=== PATIENT | male | born 1985 | race Caucasian/White ===

== ENCOUNTER 2020-09-01 07:50 | Outpatient (REF) | payer OTHER, SELFPAY ==
--- NOTE | 2020-09-01 07:55 | EEG_ITS ---
This is a 16-channel EEG with an EKG lead. The patient is reported awake and drowsy during the tracing. Background EEG rhythm during wakefulness is about 10 hertz, 5 to 30 microvolt posteriorly, lower amplitude fast anteriorly. Photic stimulation does not produce any significant driving. Hyperventilation is not performed. The patient frequently transition into drowsiness. No asymmetry, sharp wave spikes, or paroxysmal tendencies noted. Cardiac lead does not reveal any significant abnormality. IMPRESSION: Unremarkable EEG. MD BOY Roca/BRITT / [id number]
--- NOTE | 2020-09-01 10:55 | CT_ITS ---
EXAMINATION: CT HEAD WITHOUT CONTRAST CLINICAL INFORMATION: Syncope and collapse. COMPARISON: None TECHNIQUE: Contiguous axial imaging was performed from the skull base to vertex without intravenous administration of contrast. This CT examination was performed using dose optimization techniques as appropriate, variously including the following: *Automated exposure control *Adjustment of mA and/or kV according to patient size (this includes techniques or standardized protocols for targeted exams where dose is matched to indication/reason for exam; i.e. extremities or head) *Use of iterative reconstruction technique DLP: 687 mGy-cm FINDINGS: There is no evidence of acute intracranial hemorrhage or territorial infarction. No abnormal mass effect or midline shift is seen. Galeas to white matter differentiation is well preserved. No extra-axial fluid collections are identified. The ventricles are normal in size. There is no abnormal attenuation within the brain parenchyma. The osseous structures and soft tissues are normal. The mastoid air cells and visualized portions of the paranasal sinuses are well aerated. CT/CT head/brain wo con IMPRESSION: No acute intracranial process seen.
== END 2020-09-01 07:51 | disposition home or self-care (01) ==
LOC: HO.NEURO 07:50
PROVIDERS: PCP Internal Medicine; Visit Provider Internal Medicine
DX: R55 Syncope and collapse (principal)
CPT/HCPCS: 70450; 95816

== ENCOUNTER → 2020-10-16 09:25 | Outpatient (REF) | payer OTHER, SELFPAY ==
--- NOTE | 2020-10-16 09:32 | ECG_ITS ---
Hook-up date: 2020-10-16 10:28:00 Duration: 47:59:00 Test Indications: SYNCOPE AND COLLAPSE Medications: 315873 QRS complexes 2621 Ventricular ectopics which represent 1 % of total QRS comp. 30 Supraventricular ectopics which represent <1 % of total QRS comp. * Paced QRS complexs which represent % of total QRS comp. VENTRICULAR ECTOPY 2621 Isolated 0 Bigeminal Cycles 0 Couplets 0 Runs 0 Beats in Runs * Beats LONGEST at * BPM at :: -- * Beats FASTEST at * BPM at :: -- SUPRAVENTRICULAR ECTOPY 28 Isolated 1 Couplets 0 Runs 0 Beats in Runs * Beats LONGEST at * BPM at :: -- * Beats FASTEST at * BPM at :: -- HEART RATES 56 MIN at 05:37:02 2020-10-17 88 AVG 152 MAX at 17:40:17 2020-10-17 LONGEST RR 1.2080 secs at 09:08:24 2020-10-17 S-T LEVELS Channel 1 - 128 mm at 10:28:00 2020-10-16 - 128 mm at 10:28:00 2020-10-16 Channel 2 - 128 mm at 10:28:00 2020-10-16 - 128 mm at 10:28:00 2020-10-16 Channel 3 - 128 mm at 02:94:71 -- - 128 mm at 02:94:71 Underlying rhythm is sinus; Average ventricular rate 88/min; About 30% of the time, ventricular rate >100/min; Isolated ventricular ectopy - (1% of total beats, about 2621 over 48Hrs); No sustained arrhythmias; Patient did not report any symptoms in the diary Referred By: Shahida Mccormack Overread By: LIDYA TAVERA
--- NOTE | 2020-10-16 09:32 | CA_ITS ---
Acquisition Time: 2020-10-16 09:35:25 Total Exercise Time: 00:08:19 Test Indications: Dyspnea Medications: TRAMADOL FIORICET Protocol: ALEXANDRA Max HR: 169 BPM 90% of Pred: 187 BPM Max BP: 116/064 mmHG Max Work Load: 10.1 METS Exercise stress test using Alexandra protocol. Total of 8 min 19 sec, tMETS 10.10 and TAPHR up to 90%. Tolerated well, denies any anginal sx. EKG with isolated PVC's no ischemic changes seen in peak exercise or in recovery. Normotensive response to exercise. Test reviewed with Dr. Mendez Referred By: Shahida Mccormack Overread By: Rufus Gonzalez
== END ==
LOC: HO.CARD 09:25
PROVIDERS: Visit Provider Internal Medicine
DX: R07.9 Chest pain, unspecified (principal); R55 Syncope and collapse
CPT/HCPCS: 93017; 93226

== ENCOUNTER 2020-12-01 13:51 | Outpatient (REF) | payer OTHER, SELFPAY ==
--- NOTE | ~2020-12-01 | MR_ITS ---
MRI OF THE BRAIN WITHOUT IV CONTRAST INDICATION: Migraine headache. COMPARISON: Head CT 09/01/2020. TECHNIQUE: Multiplanar multisequence MR imaging of the brain was obtained without IV contrast. FINDINGS: There is no hydrocephalus, extra-axial surface collection, or herniation. No parenchymal signal abnormality. The major flow voids at the skull base are preserved. There is no acute infarct on diffusion-weighted imaging. There is no intracranial hemorrhage on the gradient recalled echo acquisition. The midline structures are normal. The cerebellar tonsils are normally positioned. The cerebellum and brainstem are normal. The craniocervical junction is normal. Osseous marrow signal intensity is homogenous. The visualized soft tissues are unremarkable. MR/MR head/brain wo con IMPRESSION: Unremarkable noncontrast MRI of the brain.
== END 2020-12-01 13:52 | disposition home or self-care (01) ==
LOC: HO.MRI 13:51
PROVIDERS: Visit Provider Internal Medicine
DX: G40.909 Epilepsy, unspecified, not intractable, without status epilepticus (principal)
CPT/HCPCS: 70551

== ENCOUNTER 2022-06-29 15:54 | Outpatient (REF) | payer OTHER, SELFPAY ==
[2022-06-29 17:02] LABS: Alanine Aminotransferase 19 U/L (0-40); Anion Gap 14 (12-20); Aspartate Amino Transferase 26 U/L (5-37); Bilirubin Total 0.3 mg/dL (0.0-1.0); Blood Urea Nitrogen 18 mg/dL (9-16); Calcium 9.3 mg/dL (8.4-10.2); Carbon Dioxide 25 mmol/L (22-29); Chloride 107 mmol/L (96-108); Estimated Glomerular Filt Rate > 60; Glucose Fasting 91 mg/dL (60-99); Potassium 4.8 mmol/L (3.3-5.1); Sodium 141 mmol/L (135-145)
[2022-06-29 17:03] LABS: Albumin Level 4.5 g/dL (3.5-5.0); Alkaline Phosphatase 129 U/L (39-117); Cholesterol 206 mg/dL; HDL Cholesterol 44 mg/dL; LDL Cholesterol Calculated 132 mg/dl; Total Protein 7.7 g/dL (6.5-8.0); Triglycerides 150 mg/dL
== END 2022-06-29 15:55 | disposition home or self-care (01) ==
LOC: HO.LAB 15:54
PROVIDERS: PCP Internal Medicine; Visit Provider Internal Medicine
DX: R07.9 Chest pain, unspecified (principal)
CPT/HCPCS: 36415; 80053; 80061; 84443

== ENCOUNTER → 2022-06-30 14:35 | Outpatient (REF) | payer OTHER, SELFPAY ==
--- NOTE | 2022-06-30 14:38 | ECG_ITS ---
Test Reason : CP Blood Pressure : / mmHG Vent. Rate : 080 BPM Atrial Rate : 080 BPM P-R Int : 134 ms QRS Dur : 074 ms QT Int : 342 ms P-R-T Axes : 061 084 063 degrees QTc Int : 394 ms Normal sinus rhythm RSR' or QR pattern in V1 suggests right ventricular conduction delay Otherwise normal ECG No previous ECGs available Referred By: Shahida Mccormack Electronically Signed By:OSCAR BECERRIL MD
== END ==
LOC: HO.CARD 14:35
PROVIDERS: PCP Internal Medicine; Visit Provider Internal Medicine
DX: R07.9 Chest pain, unspecified (principal)
CPT/HCPCS: 93005

== ENCOUNTER 2022-10-12 14:14 | Outpatient (REF) | payer OTHER, SELFPAY ==
[2022-10-12 15:37] LABS: Syphilis Screen Nonreactive (Nonreactive)
[2022-10-12 16:16] LABS: CT PCR NOT DETECTED (Not Detect.); NG PCR NOT DETECTED (Not Detect.)
[2022-10-13 11:40] LABS: HIV AB/AG Nonreactive (Nonreactive); HIV Num 1 0.09 S/CO (0.00-0.99)
== END 2022-10-12 14:15 | disposition home or self-care (01) ==
LOC: HO.LAB 14:14
PROVIDERS: PCP Internal Medicine; Visit Provider Internal Medicine
DX: Z11.3 Encounter for screening for infections with a predominantly sexual mode of transmission (principal)
CPT/HCPCS: 0353U; 86780; 87389

== ENCOUNTER → 2022-10-18 12:25 | Outpatient (BNVA) | payer OTHER, SELFPAY | PROVIDERS: PCP Internal Medicine; Referring Provider Internal Medicine; Visit Provider Internal Medicine | DX: R07.9 Chest pain, unspecified (principal); R00.2 Palpitations | CPT/HCPCS: 99202 ==

== ENCOUNTER → 2022-10-31 14:48 | Outpatient (REF) | payer OTHER, SELFPAY ==
--- NOTE | 2022-10-31 14:52 | CA_ITS ---
Transthoracic Echocardiogram Patient (Last, First, Middle): Syed Black, Gender: Male Date of : 1985 Age: 36 Procedure Date: 10/31/2022 Procedure Type: Transthoracic Echocardiogram Location: OP Height: 167.64 cm Weight: 69.85 kg BSA: 1.79 m2 Heart Rate: bpm BP: 122 / 78 mmHg Chassis Wirer: Referring MD: Feliberto José MD Creative Services Director: Jesse Mendez MD Symptoms: R07.9 - Chest pain, unspecified Study Quality: Adequate ECG Rhythm: Sinus Conclusions: - Essentially normal study Findings Left Ventricle Normal left ventricular size, thickness, and systolic function. The visually estimated ejection fraction is between 60-65%. Diastolic function is normal for age. Peak GLS is -18.8%, within normal limits. Right Ventricle Normal right ventricular cavity size and systolic function. Atria Both atria are normal in size. There is lipomatous hypertrophy of the interatrial septum. There is no evidence of interatrial shunt. Aortic Valve Normal aortic valve structure and function. There is no aortic valve stenosis. There is no aortic valve regurgitation. Mitral Valve Normal mitral valve structure and function. There is trace mitral valve regurgitation. There is no mitral valve stenosis. Pulmonic Valve The pulmonic valve is likely normal. Tricuspid Valve Normal tricuspid valve structure. There is trace tricuspid valve regurgitation. The right ventricular systolic pressure is normal. The right ventricular systolic pressure is 17 mmHg. Normal right atrial pressure. There is no evidence of pulmonary hypertension. Great Vessels All visible segments of the aorta are normal in size. The pulmonary artery was not well visualized. Venous The inferior vena cava is normal in size and collapses greater than 50% with inspiration. Pericardium/Pleural There is no evidence of pericardial effusion. Prior Study Comparison No prior study available for comparison. Measurements 2D Linear Measurements IVSd: 0.80 0.6-0.9/0.6-1.0 cm LVIDd: 4.70 3.9-5.3/4.2-5.9 cm LVIDd Index: 2.63 2.4-3.2/2.2-3.1 cm/m2 LVIDs: 3.19 2.0-3.6 cm LVPWd: 0.87 0.7-1.1 cm Ao Root: 2.60 2.1-3.5 cm LA Diam: 2.70 2.7-3.8/3.0-4.0 cm LAIDs Index: 1.51 1.5-2.3 cm/m2 LV Mass: 160.96 67-162/88-224 g LV Mass Index: 89.92 43-95/49-115 g/m2 LVOT Diam: 2.00 3.0+(-)1.3 cm Mitral Valve MV Pk E: 0.66 MV PK A: 0.70 MV Decel Time: 196.00 E/A: 0.90 E'Lateral: 16.80 E'Medial: 11.50 E/E' Med: 5.70 E/E' Lat: 3.90 PHT: 57.00 MVA PHT: 3.86 Decel [place]: 3.38 Aortic Valve AoV Pk Fran: 1.38 AoV Mn Fran: 0.84 AoV VTI: 0.27 AoV Pk Grad: 8.00 Aov Mn Grad: 4.00 PAT Cont.VTI: 2.24 LVOT LVOT Pk Fran: 0.98 LVOT Mn Fran: 0.62 LVOT VTI: 0.19 LVOT Pk Grad: 4.00 LVOT Mn Grad: 2.00 LVOT Diam: 2.00 LVOT Area: 3.14 Diastolic Function MV Pk E: 0.66 MV Pk A: 0.70 E/A: 0.90 E'Medial: 11.50 E/E' Med: 5.70 E' Laterial: 16.80 E/E' Lat: 3.90 Right Ventricle TAPSE (mm): 21.20 TVS' Fran: 11.60 Tricuspid Valve TR Pk Fran: 1.84 TR Pk Grad: 14.00 RA Press: 3.00 RVSP: 17.00 Great Vessels Aorta Ao Root-2D: 2.60 2.0-3.7 cm Ao Asc: 2.60 2.1-3.4 cm Ao Arch: 2.70 Pulmonary Valve PV Pk Fran: 0.87 Peak PV Grad: 3.00 Updated in Other Vendor System with Status of Final Jesse Mendez MD electronically signed on 11/01/2022 12:43:07 PM with status of Final
== END ==
LOC: HO.CARD 14:48
PROVIDERS: PCP Internal Medicine; Visit Provider Internal Medicine
DX: R07.9 Chest pain, unspecified (principal)
CPT/HCPCS: 93306

== ENCOUNTER 2023-01-26 17:46 | Outpatient (REF) | payer OTHER, SELFPAY ==
[2023-01-26 18:15] LABS: Amphetamine Screen Urine Not Detected (Not Detect); Barbiturates, Urine POSITIVE (Not Detect); Benzodiazepines Screen Urine Not Detected (Not Detect); Cannabinoid Screen Urine Not Detected (Not Detect); Cocaine Screen Urine Not Detected (Not Detect); Fentanyl, urine Not Detected (Not Detect); Opiate Screen Urine Not Detected (Not Detect); Phencyclidine Screen Urine Not Detected (Not Detect)
[2023-01-29 11:46] LABS: Desmethyltramadol, Ur NEGATIVE
[2023-01-29 11:48] LABS: Tramadol, Ur NEGATIVE
[2023-02-07 08:44] LABS: Codeine, Ur NEGATIVE; Hydrocodone, Ur NEGATIVE; Hydromorphone, Ur NEGATIVE; Morphine, Ur NEGATIVE; Norhydrocodone, Ur NEGATIVE; Noroxycodone, Ur NEGATIVE; Oxycodone, Ur NEGATIVE; Oxymorphone, Ur NEGATIVE
== END 2023-01-26 17:47 | disposition home or self-care (01) ==
LOC: HO.LNP 17:46
PROVIDERS: Visit Provider Internal Medicine
DX: Z00.00 Encounter for general adult medical examination without abnormal findings (principal); R07.9 Chest pain, unspecified; R55 Syncope and collapse; M51.36 Other intervertebral disc degeneration, lumbar region; Z51.81 Encounter for therapeutic drug level monitoring
CPT/HCPCS: 80307; 80364; 80365; 80373

== ENCOUNTER 2023-11-22 14:42 | Outpatient (AMB) | payer OTHER, SELFPAY ==
--- NOTE | 2023-11-22 14:44 | A.OFFPC_ITS ---
Vital Signs 11/22/23 14:45 Height 5 ft 6 in Weight 144 lb BMI 23.2 BP 102/70 Blood Pressure Location Lt brachial Position Sitting Intake Visit Reasons: chronic migraine Intake Note: Patient here for follow up chronic migraine Morning Babysitter Required: No Accompanied by: Significant Other, child Allergies rizatriptan Allergy (Unknown, Verified 11/22/23 15:17) Palpitations Medication List - Last Reconciled 11/22/23 by Shahida Mccormack MD [id number] 50-325-40 mg 1 tab PO DAILY PRN 30 days Tobacco use date assessed: 11/22/23 Dental Screening Dental Screen Date: 11/22/23 Did you have a dental visit in the last 12 months?: No Did you have a dental problem in the last 6 months where you did not have access to dental care?: No Was dental information given to patient?: Patient has dentist HPI HPI Comments History of Present Illness Details This is a 37-year-old male with migraines, lumbar degenerative disc disease and insomnia that comes today accompanied by significant other and child for follow-up on his conditions. He said that he has a migraine every day. Last MRI of the brain was 2020 was negative. I will start him on amitriptyline for migraine prophylaxis and refer him to Neurology. Will give meloxicam as needed for his back pain due to lumbar degenerative disc disease. Hopefully amitriptyline will also help with his insomnia. He has a smoker and is trying to decrease the number of cigarettes daily. [facility] Medical History (Updated 01/26/23 @ 13:30 by Shahida Mccormack MD) Syncope Chest pain Lumbar degenerative disc disease Migraines Surgical History History of cholecystectomy Family History Father Medical history unknown Mother AIDS Social History Housing: Apartment Alcohol intake: current Alcohol intake frequency: holidays/special occasions only Alcohol type: beer Patient Tobacco Use Status: Current everyday Tobacco user Tobacco use type: Cigarette Cigarettes Per Day: 5 e-Cigarette/Vaping Use: Never Used Second Hand Smoke Exposure: No service: No Current occupational status: unemployed Cognitive needs: No Hearing needs: No Vision needs: No Questionnaire PHQ-9 Over the last 2 weeks, how often have you been bothered by any of the following problems? 1. Little interest or pleasure in doing things: not at all 2. Feeling down, depressed, or hopeless: not at all 3. Trouble falling or staying asleep, or sleeping too much: not at all 4. Feeling tired or having little energy: not at all 5. Poor appetite or overeating: not at all 6. Feeling bad about yourself - or that you are a failure or have let yourself or your family down: not at all 7. Trouble concentrating on things, such as reading the newspaper or watching television: not at all 8. Moving or speaking so slowly that other people could have noticed. Or the opposite - being so fidgety or restless that you have been moving around a lot more than usual: not at all 9. Thoughts that you would be better off or of hurting yourself in some way: not at all Total score: 0 Depression Screening Interpretation: Negative Depression Screening Done: Yes 16421 - PHQ-9 Billing: Yes Source: Developed by Drs. Philip Pineda, Bianca Jacome, Chung Pollard and colleagues, with an educational jose from [employer]. Thrive Questionnaire Date Thrive assessed: 11/22/23 I am a: Patient What is your living situation today?: I have a steady place to live Within the past 12 months, did the food you bought not last and you didn't have the money to get more?: Never true Within the past 12 months, did you worry whether your food would run out before you got money to buy more?: Never true Do you have trouble paying for medicines?: No Do you have trouble getting transportation to medical appointments?: No Do you have trouble paying your heating and electricity bill?: No Do you have trouble taking care of your child, family member or friend?: No Do you have trouble with day-to-day activities such as bathing, preparing meals, shopping, managing finances, etc.?: No Are you currently unemployed and looking for a job?: No Are you interested in more education?: No Please select the resources that you would like help with: None Currently or been in a relationship where the following occur: no concerns r eported THRIVE Score: 0 AUDIT C Alcohol Use Questionnaire (AUDIT-C) 1. How often do you have a drink containing alcohol?: Monthly or less 2. How many drinks containing alcohol do you have on a typical day when you are drinking?: 1 or 2 3. How often do you have six or more drinks on one occasion?: Never Total Score: 1 Score Reviewed/Action Taken: No KARTHIK-7 AMB Questionnaire KARTHIK-7 Date KARTHIK - 7 assessed: 11/22/23 Feeling nervous, anxious, or on edge: 2 = More than half the days Not being able to stop or control worryin = Not at all Worrying too much about different things: 1 = Several days Trouble relaxin = More than half the days Being so restless that it is hard to sit still: 1 = Several days Becoming easily annoyed or irritable: 1 = Several days Feeling afraid as if something awful might happen: 1 = Several days Total KARTHIK-7 score (0-4 normal; 5-9 mild; 10-14 moderate; 15-21 severe): 8 Source: Developed by Drs. Philip Pineda, Bianca Jacome, Chung Pollard and colleagues, with an educational jose from [employer]. KARTHIK-7 Assessment Billing KARTHIK-7 Assessment Tool: KARTHIK-7 Assessment 02482 Review of Systems Const All systems reviewed & are unremarkable except as noted in HPI and below Eyes Reports no additional complaints, Denies change in vision and Denies other visual disturbances Card Denies chest pain at rest, Denies chest pain with activity, Denies edema, Denies irregular heart rhythm, Denies claudication, Denies dyspnea, Denies dyspnea on exertion, Denies orthopnea, Denies paroxysmal nocturnal dyspnea and Denies slow heart rate Resp Denies cough, Denies dyspnea and Denies dyspnea on exertion GI Denies abdominal pain, Denies change in bowel habits, Denies excessive flatus, Denies nausea and Denies vomiting Denies urinary hesitancy, Denies urinary incontinence and Denies urinary urgency Musc Denies abnormal gait, Denies atrophy, Denies deformity and Denies limited range of motion Skin/Breast Denies bleeding lesions, Denies changing lesions and Denies rash Neuro Denies abnormal gait and Denies lack of coordination Physical exam (Primary Care) Vital Signs: Last Vital Signs BP 102/70 11/22/23 14:45 BMI result Body Mass Index 23.2 Tobacco/Smoking Status: Tobacco use Status Tobacco use date assessed 11/22/23 11/22/23 14:51 Patient Tobacco Use Status Current everyday Tobacco 11/22/23 14:51 Tobacco use type Cigarette 11/22/23 14:51 e-Cigarette/Vaping Use Never Used 11/22/23 14:51 PHQ-9: PHQ-9 Score PHQ-9: Total score 0 11/22/23 15:21 Depression Screening Interpretation: Negative Thrive Assessment: Date of Thrive Assessment Date Thrive assessed 11/22/23 11/22/23 14:51 Currently or been in a relationship where the following occur: no concerns reported Const Orientation/consciousness: patient oriented x3 Eyes General: appearance normal, both eyes and all related structures Eyelids: Yes eyelids normal Conjunctivae: conjunctivae normal Neck Neck: Yes normal visual inspection and Yes supple Resp Effort & Inspection: normal respiratory effort Auscultation: clear to auscultation bilaterally Cardio Jugular venous distension: no JVD Rate: regular rate Rhythm: regular rhythm Heart sounds: S1 normal heart sound present and S2 normal heart sound present Neuro General: patient oriented x3 and no focal motor deficits Extrem General: Yes full ROM Assessment and Plan Assessment & Plan (1) Migraines: Code(s): G43.909 - Migraine, unspecified, not intractable, without status migrainosus Qualifiers: Migraine type: unspecified Status migrainosus presence: without status migrainosus Intractability: not intractable Qualified Code(s): G43.909 - Migraine, unspecified, not intractable, without status migrainosus Plan: Start amitriptyline for migraine prophylaxis. Continue butalbital as needed. Referred to neurology. (2) Lumbar degenerative disc disease: Code(s): M51.36 - Other intervertebral disc degeneration, lumbar region Plan: Start meloxicam as needed. (3) Insomnia: Code(s): G47.00 - Insomnia, unspecified Plan: Start amitriptyline at bedtime. Orders: Orders Comprehensive [place]. Panel Fast Today R00.2 - Palpitations Lipid Panel Today E78.5 - Hyperlipidemia, unspecified Referrals Neurology Referral G43.909 - Migraine, unspecified, not intractable, without status migrainosus Medications: New meloxicam 15 mg PO DAILY PRN 30 tabs 0RF pain 30 days M51.36 - Other intervertebral disc degeneration, lumbar region amitriptyline 25 mg PO BEDTIME 30 tabs 2RF 30 days G43.909 - Migraine, unspecified, not intractable, without status migrainosus Coding Level of Care Code Est Pt Level 3 (89166) Diagnoses Migraine without status migrainosus, not intractable, unspecified migraine type G43.909 Migraine type: unspecified Status migrainosus presence: without status migrainosus Intractability: not intractable Lumbar degenerative disc disease M51.36 Insomnia G47.00 Additional Codes KARTHIK-7 Assessment Billing - KARTHIK-7 Assessment Tool: KARTHIK-7 Assessment 42401 ([id number]) Time Spent (min) 19
[2023-11-22 14:45] VITALS: BP 102/70; BMI 23.2
== END 2023-11-22 15:25 | disposition home or self-care (01) ==
PROVIDERS: PCP Internal Medicine; Visit Provider Internal Medicine
DX: G43.909 Migraine, unspecified, not intractable, without status migrainosus (principal); M51.36 Other intervertebral disc degeneration, lumbar region; G47.00 Insomnia, unspecified
CPT/HCPCS: 99213

== ENCOUNTER 2024-02-12 12:33 | Outpatient (AMB) | payer OTHER, SELFPAY ==
[2024-02-12 12:38] VITALS: BP 108/60; BMI 22.3
--- NOTE | 2024-02-12 12:38 | MHC.PC.OV ---
Vital Signs 02/12/24 12:38 Height 5 ft 6 in Weight 138 lb BMI 22.3 BP 108/60 Blood Pressure Location Lt brachial Position Sitting Intake Visit Reasons: physical exam Intake Note: Patient here for a physical exam Aircraft Dispatcher Required: No Accompanied by: Self / Same As Patient Allergies rizatriptan Allergy (Unknown, Verified 02/12/24 12:56) Palpitations Medication List - Last Reconciled 02/12/24 by Shahida Mccormack MD [id number] 50-325-40 mg 1 tab PO DAILY PRN 30 days meloxicam 15 mg PO DAILY PRN 30 days Tobacco use date assessed: 11/22/23 Dental Screening Dental Screen Date: 11/22/23 HPI HPI Comments History of Present Illness Details This is a 38-year-old male that comes for his physical exam. No chest pain or shortness on breath. Doing well. [facility] Medical History Syncope Chest pain Lumbar degenerative disc disease Migraines Surgical History History of cholecystectomy Family History Father Medical history unknown Mother AIDS Social History Housing: Apartment Alcohol intake: current Alcohol intake frequency: holidays/special occasions only Alcohol type: beer Patient Tobacco Use Status: Current everyday Tobacco user Tobacco use type: Cigarette Cigarettes Per Day: 5 e-Cigarette/Vaping Use: Never Used Second Hand Smoke Exposure: No service: No Current occupational status: unemployed Cognitive needs: No Hearing needs: No Vision needs: No Questionnaire Thrive Questionnaire Date Thrive assessed: 11/22/23 KARTHIK-7 AMB Questionnaire KARTHIK-7 Date KARTHIK - 7 assessed: 11/22/23 Source: Developed by Drs. Philip Pineda, Bianca Jacome, Chung Pollard and colleagues, with an educational jose from [employer]. Review of Systems Const All systems reviewed & are unremarkable except as noted in HPI and below Reports headache(s) ENT Reports headache(s) Card Denies chest pain at rest, Denies chest pain with activity, Denies edema, Denies irregular heart rhythm, Denies claudication, Denies dyspnea, Denies dyspnea on exertion, Denies orthopnea, Denies paroxysmal nocturnal dyspnea and Denies slow heart rate Resp Denies cough, Denies dyspnea and Denies dyspnea on exertion GI Denies abdominal pain, Denies change in bowel habits, Denies excessive flatus, Reports heartburn, Denies nausea and Denies vomiting Denies urinary hesitancy, Denies urinary incontinence and Denies urinary urgency Neuro Denies behavioral changes, Denies confusion, Reports headache(s) and Denies lack of coordination Psych Denies behavioral changes and Denies confusion Physical exam (Primary Care) Vital Signs: Last Vital Signs BP 108/60 02/12/24 12:38 BMI result Body Mass Index 22.3 Tobacco/Smoking Status: Tobacco use Status Tobacco use date assessed 11/22/23 02/12/24 12:42 Patient Tobacco Use Status Current everyday Tobacco 02/12/24 12:42 Tobacco use type Cigarette 02/12/24 12:42 e-Cigarette/Vaping Use Never Used 02/12/24 12:42 Thrive Assessment: Date of Thrive Assessment Date Thrive assessed 11/22/23 02/12/24 12:42 Const General: No confusion Orientation/consciousness: patient oriented x3 and No confusion HENMT Head: Yes normal to inspection, Yes normocephalic and Yes atraumatic Ears: external ears normal Eyes General: appearance normal, both eyes and all related structures Eyelids: Yes eyelids normal Conjunctivae: conjunctivae normal Neck Neck: Yes normal visual inspection and Yes supple Resp Effort & Inspection: normal respiratory effort Auscultation: clear to auscultation bilaterally Cardio Jugular venous distension: no JVD Rate: regular rate Rhythm: regular rhythm Heart sounds: S1 normal heart sound present and S2 normal heart sound present GI Inspection: Yes normal to inspection Palpation (GI): Soft to palpation and nontender Auscultation: normal bowel sounds Skin General skin exam: no rashes or lesions noted Neuro General: patient oriented x3, no focal motor deficits and No confusion Extrem General: Yes full ROM Psych Appearance: grossly normal Assessment and Plan Assessment & Plan (1) Physical exam: Code(s): Z00.00 - Encounter for general adult medical examination without abnormal findings Plan: Repeat in a year. Medications: New omeprazole 20 mg PO DAILY 90 days 90 caps 1RF Coding Level of Care Code Est Pt Prev Care 18-39y(17531) Diagnoses Physical exam Z00.00 Time Spent (min) 30
== END 2024-02-12 13:04 | disposition home or self-care (01) ==
PROVIDERS: Visit Provider Internal Medicine
DX: Z00.00 Encounter for general adult medical examination without abnormal findings (principal)
CPT/HCPCS: 99395

== ENCOUNTER 2024-06-10 11:45 | Outpatient (AMB) | payer OTHER, SELFPAY ==
[2024-06-10 12:00] VITALS: PULSE 82; O2SAT 99; BMI 22.8
--- NOTE | 2024-06-10 12:00 | MHC.OFFVIS ---
Vital Signs 06/10/24 12:00 Height 5 ft 6 in Weight 141 lb BMI 22.8 Pulse 82 Pulse Source Pulse Oximeter Pulse Oximetry (%) 99 Oxygen Delivery Method Room Air Intake Visit Reasons: (LVM+Letter 11/23/23) INP-Migraine, unspecified Intake Note: Patient presents for migraines. patient has headaches everyday. Director Rehabilitation Program Required: Yes Director Rehabilitation Program Name: jaida copeland Information Interpreted: non-clinical & clinical Allergies rizatriptan Allergy (Unknown, Verified 06/10/24 12:02) Palpitations Medication List - Last Reconciled 06/10/24 by Regla Stinson, MADALYN hgxmodvyuj-wxekjuvsxhcvs-wtme 50-325-40 mg 1 tab PO DAILY PRN 30 days meloxicam 15 mg PO DAILY PRN 30 days omeprazole 20 mg PO DAILY 90 days HPI Comments Details: Right-handed 38-yr-old male presents for new pt evaluation of headache disorder. Pt reports he has had bothersome headcahes since childhood, but about 5 years ago, he started having daily constant headcahes about 5 yrs ago, w/o known preceding infection, illness, accident. PMH and ROS are notable for:? Musculoskeletal disorders or injury: low back pain. Mood d/o: Depression- in the past CV disease: syncope- last episode was last year, palpitations. Cardiac work-up has been reassuring- palpitations likely d/t non-sustained sinus tachycardia or PVCs- per cardiology no specific tx indicated. Family planning: if possible. has 1 son Pertinent denials include: History of concussion/head injury, Respiratory d/o, Clotting or hematology d/o, Endocrine d/o, metabolic d/o, History of seizure or drop attacks, GI d/o, Constipation. [Family history of migraine or other headache disorder] Lifestyle considerations: Sleep routine: Varies Sleep difficulties: Endorses: snoring, Excessive daytime sleepiness, Fatigue, Gasping Arousals, Restless sleep, Leg Cramps- at times, Bruxism- at times Caffeine use: 1-2 cups per day, at times coke. Substance use: Tobacco Exercise:?rides his bike Employment:? not working now d/t his low back pain Headache questionnaire:? Age/time of onset: childhood Preceding causes: none Previous work-up: MRI brain, 2020- normal. Typical headache characteristics: Prodrome symptoms: unsure Aura: only when very severe- sees colorful tiny spots Pain intensity: severe Location, quality, characteristics: Holocranial and eye/facial pressure pain Associated symptoms: photophobia, phonophobia, osmophobia- at times, allodynia, nausea, vomiting, spinning dizziness, lightheadedness- at times, fatigue, cognitive difficulties, activity intolerance, red eye, watery eye, nasal congestion, facial swelling/warmth- in the bridge of nose. Postdrome: Unsure Triggers: hunger, lights, stress, not sleeping well, light Time of day: No specific time of day Duration and Frequency: constant. How does headache impact your life? cannot do much Current acute medication use/interventions: Fioricet- has 10 tablets per month, otherwise uses Excedrin. Taking either at least daily. Fioricet helps, but Excedrin takes the edge off. Current preventative medication use: None Non-pharmacological interventions: Rest PFSH Medical History Syncope Chest pain Lumbar degenerative disc disease Migraines Surgical History History of cholecystectomy Family History Father Medical history unknown Mother AIDS Social History Housing: Apartment Alcohol intake: current Alcohol intake frequency: holidays/special occasions only Alcohol type: beer Patient Tobacco Use Status: Current everyday Tobacco user Tobacco use type: Cigarette Cigarettes Per Day: 5 e-Cigarette/Vaping Use: Never Used Second Hand Smoke Exposure: No service: No Current occupational status: unemployed Cognitive needs: No Hearing needs: No Vision needs: No Physical Exam Vital Signs: Last Vital Signs Pulse 82 06/10/24 12:00 Pulse Ox 99 06/10/24 12:00 Oxygen Delivery Method Room Air 06/10/24 12:00 BMI result Body Mass Index 22.8 Const Orientation/consciousness: patient oriented x3 Resp Effort & Inspection: normal respiratory effort and able to speak in complete sentences Neuro Other: Diffuse palpable scalp tenderness. Bilateral posterior cervical tightness. Cervical ROM: full Left Spurling: elicits left posterior-lateral neck focal, non-radiating tenderness. Right Spurling: normal. General: patient oriented x3 Cranial nerves: Yes CN's II-XII intact bilaterally, Yes Bilaterally intact EOM present (though elicits dizziness) and Yes Nystagmus not present Cognition (Neuro): normal cognition Gait exam (Neuro): Normal gait present Motor exam (neuro): 5/5 motor strength present throughout Deep tendon reflexes (DTR's): Right triceps reflex intensity grade: 2+, Left triceps reflex intensity grade: 2+, Rt Biceps (C5, C6): 2+, Left biceps reflex intensity grade: 2+, Right brachioradialis reflex intensity grade: 2+, Left brachioradialis reflex intensity grade: 2+, Right patellar reflex intensity grade: 2+ and Left patellar reflex intensity grade: 2+ Coordination: knzota-mw-[id number] test normal, tandem gait normal and Romberg test negative Pupils: Normal pupillary reactivity/response: bilateral Psych Appearance: grossly normal Mental Status: mental status grossly normal Speech and movement: Normal speech and movement present Affect: normal affect Attitude: cooperative Thought process: Normal thought process present Assessment & Plan Assessment & Plan (1) Chronic migraine without aura: Code(s): G43.709 - Chronic migraine without aura, not intractable, without status migrainosus Category: Medical (2) Cervicalgia: Code(s): M54.2 - Cervicalgia Category: Medical (3) Sleep difficulties: Code(s): G47.9 - Sleep disorder, unspecified Category: Medical (4) Excessive daytime sleepiness: Code(s): G47.19 - Other hypersomnia Category: Medical (5) Snoring: Code(s): R06.83 - Snoring Category: Medical Plan Pt advised to undergo: PT eval & tx for craniosacral tx. HST to assess for sleep apnea. For overall headache management: Optimize good self-care, including but not limited to maintaining a healthy diet, adequate fluid intake, adequate sleep, and engaging in regular physical activity. Track headaches, especially after any treatment regimen changes. Migraine [email or web address] is one of many headache tracking apps. For acute headache treatment: Discussed importance of taking acute medications at the first sign of headache, however stressed importance of avoiding acute medication overuse (especially with combined headache medications). Stop Excedrin entirely. May continue Fioricet prn for now. Consider trialing Sumatriptan at f/u. Previous acute migraine medication trials: Rizatriptan- palpitations. Acute migraine medication contraindications: None at this time For headache prevention medication: Preventative medications should be taken routinely as prescribed for best effect, it may take several weeks for full effect to take effect. Start Riboflavin 400mg qam Start Magnesium 400mg qhs Trial Topiramate 25-50mg qhs. Potential adverse effects of Topiramate, include but are not limited to fatigue, cognitive changes, paresthesias (tingling), vision changes, kidney stones. Previous migraine prevention medication trials: Amitriptyline 25mg qhs- caused excessive sleepiness. Migraine prevention medication contraindications: anti-HTN, including beta-blockers, d/t h/o syncope and low BP. Pt seen in collaboration w/ Dr Bailee Salvador. Pt advised to call us in 2 weeks w/ status update. Will follow-up upon review of above and patient to follow-up in clinic in 6 months or sooner prn. Orders: Orders RT home sleep study Today G47.19 - Other hypersomnia, G47.9 - Sleep disorder, unspecified PT Evaluation and Treatment Today G43.709 - Chronic migraine without aura, not intractable, without status migrainosus, M54.2 - Cervicalgia Medications: New topiramate 25 - 50 mg (1 - 2 x 25 mg) PO BEDTIME 30 days 60 tabs 3RF magnesium oxide may hold for loose stools 400 mg PO BEDTIME 30 days 30 tabs 6RF riboflavin (vitamin B2) in am 400 mg (4 x 100 mg) PO DAILY 30 days 120 tabs 6RF Refilled ospcewhetu-rzmdokspzgafd-hcxu 50-325-40 mg 1 tab PO DAILY 30 days PRN 12 tabs 0RF pain Coding Level of Care Code New Pt Level 4 (80999) Diagnoses Chronic migraine without aura G43.709 Cervicalgia M54.2 Sleep difficulties G47.9 Excessive daytime sleepiness G47.19 Snoring R06.83 [place] Sleepiness Scale Questions Sitting and reading: high chance of dozing Watching TV: high chance of dozing Sitting inactive in a theater, movie etc.: slight chance of dozing As a passenger in a car for an hour without break: moderate chance of dozing Lying down in the afternoon when circumstances permit: moderate chance of dozing Sitting and talking to someone: would never doze Sitting quietly after lunch without alcohol: moderate chance of dozing In a car, while stopped for a few minutes in the traffic: would never doze ESS < 10: normal, ESS > 12: pathologic: 13
== END 2024-06-10 13:05 | disposition home or self-care (01) ==
PROVIDERS: PCP Internal Medicine; Visit Provider Nurse Practitioner Family
DX: G43.709 Chronic migraine without aura, not intractable, without status migrainosus (principal); M54.2 Cervicalgia; G47.9 Sleep disorder, unspecified; G47.19 Other hypersomnia; R06.83 Snoring
CPT/HCPCS: 99204

== ENCOUNTER → 2024-06-10 11:45 | Outpatient (BNVA) | payer OTHER, SELFPAY | PROVIDERS: PCP Internal Medicine; Visit Provider Nurse Practitioner Family | DX: G43.709 Chronic migraine without aura, not intractable, without status migrainosus (principal); M54.2 Cervicalgia; G47.9 Sleep disorder, unspecified; G47.19 Other hypersomnia; R06.83 Snoring | CPT/HCPCS: 99202 ==

== ENCOUNTER → 2024-07-22 10:00 | Outpatient (BNV) | payer OTHER, SELFPAY | PROVIDERS: PCP Internal Medicine; Visit Provider Psychiatry & Neurology Neurology | DX: R06.83 Snoring (principal); G47.10 Hypersomnia, unspecified | CPT/HCPCS: 95806 ==

== ENCOUNTER → 2024-07-22 12:43 | Outpatient (REF) | payer OTHER, SELFPAY | LOC: HO.SL 12:43 | PROVIDERS: PCP Internal Medicine; Visit Provider Nurse Practitioner Family | DX: R06.83 Snoring (principal) | CPT/HCPCS: 95806 ==

== ENCOUNTER 2024-12-19 12:41 | Outpatient (AMB) | payer OTHER, SELFPAY ==
[2024-12-19 12:55] VITALS: BP 110/60; PULSE 87; O2SAT 98; BMI 23.9
--- NOTE | 2024-12-19 12:55 | MHC.OFFVIS ---
Vital Signs 12/19/24 12:55 Height 5 ft 6 in Weight 148 lb BMI 23.9 BP 110/60 Blood Pressure Location Rt brachial Position Sitting Pulse 87 Pulse Source Pulse Oximeter Pulse Oximetry (%) 98 Oxygen Delivery Method Room Air Intake Visit Reasons: Follow Up 6mo Intake Note: Patient presents follow up for migraines. Home sleep study done on 07/22/24. Adjunct Trainer Required: Yes Adjunct Trainer Services: Adjunct Trainer Present Adjunct Trainer Name: [id number] Accompanied by: Self / Same As Patient Allergies rizatriptan Allergy (Unknown, Verified 06/10/24 12:02) Palpitations Medication List - Last Reconciled 12/19/24 by MADALYN Singh albuterol sulfate 2.5 mg (3 mL) inhalation Q4-6H PRN 30 days sfsltxpyfj-ubhwtxhqipnkh-dwnv 50-325-40 mg 1 tab PO DAILY PRN 30 days magnesium oxide 400 mg PO BEDTIME 30 days meloxicam 15 mg PO DAILY PRN 30 days nebulizers (AeroEclipse II Nebulizer) As directed omeprazole 20 mg PO DAILY 90 days riboflavin (vitamin B2) 400 mg (4 x 100 mg) PO DAILY 30 days topiramate 25 - 50 mg (1 - 2 x 25 mg) PO BEDTIME 30 days HPI Comments Details: 39-year-old male presents for follow-up chronic migraine, sleep difficulties, and he would also like to discuss his low back pain. Patient denies any significant interval medical history changes. He reports he continues to have constant migraine. He also reports constant low back pain, which spreads across the lower back and up the back to the bilateral posterior thoracic region. He would like a referral to an assistant professor of spanish, states when he wore glasses in the past, his headaches were much better. Patient believes he started riboflavin, but unsure about magnesium or topiramate. Currently using Fioricet, as needed- states his PCP provides him 10 tabs per month. He notes that in the past, he has had Fioricet and when taken with tramadol, he does have reprieve from the headache and back pain. He lasted physical therapy 4+ years ago- states it was unhelpful. Of note, XR lumbar/thoracic spine done at [facility] in February 2024 did not show any acute abnormalities, however did show a few right renal calculi up to 3 mm, in a punctuate left upper pole renal calculus. Patient denies known history of kidney stones, however on further review of patient's chart, a renal/bladder ultrasound done in 2022 at [facility], showed a 0.7 cm nonobstructing calculus in the right kidney, which was without hydronephrosis-and a normal left kidney. Patient denies any anterior groin pain, dysuria, hematuria. 06/10/24, Initial HPI: Right-handed 38-yr-old male presents for new pt evaluation of headache disorder. Pt reports he has had bothersome headaches since childhood, but about 5 years ago, he started having daily constant headaches about 5 yrs ago, w/o known preceding infection, illness, accident. PMH and ROS are notable for:? Musculoskeletal disorders or injury: low back pain. Mood d/o: Depression- in the past CV disease: syncope- last episode was last year, palpitations. Cardiac work-up has been reassuring- palpitations likely d/t non-sustained sinus tachycardia or PVCs- per cardiology no specific tx indicated. Family planning: if possible. has 1 son Pertinent denials include: History of concussion/head injury, Respiratory d/o, Clotting or hematology d/o, Endocrine d/o, metabolic d/o, History of seizure or drop attacks, GI d/o, Constipation. [Family history of migraine or other headache disorder] Lifestyle considerations: Sleep routine: Varies Sleep difficulties: Endorses: snoring, Excessive daytime sleepiness, Fatigue, Gasping Arousals, Restless sleep, Leg Cramps- at times, Bruxism- at times Caffeine use: 1-2 cups per day, at times coke. Substance use: Tobacco Exercise:?rides his bike Employment:? not working now d/t his low back pain Headache questionnaire:? Age/time of onset: childhood Preceding causes: none Previous work-up: MRI brain, 2020- normal. Typical headache characteristics: Prodrome symptoms: unsure Aura: only when very severe- sees colorful tiny spots Pain intensity: severe Location, quality, characteristics: Holocranial and eye/facial pressure pain Associated symptoms: photophobia, phonophobia, osmophobia- at times, allodynia, nausea, vomiting, spinning dizziness, lightheadedness- at times, fatigue, cognitive difficulties, activity intolerance, red eye, watery eye, nasal congestion, facial swelling/warmth- in the bridge of nose. Postdrome: Unsure Triggers: hunger, lights, stress, not sleeping well, light Time of day: No specific time of day Duration and Frequency: constant. How does headache impact your life? cannot do much Current acute medication use/interventions: Fioricet- has 10 tablets per month, otherwise uses Excedrin. Taking either at least daily. Fioricet helps, but Excedrin takes the edge off. Current preventative medication use: None Non-pharmacological interventions: Rest PFSH Medical History Syncope Chest pain Lumbar degenerative disc disease Migraines Surgical History History of cholecystectomy Family History Father Medical history unknown Mother AIDS Social History Housing: Apartment Alcohol intake: current Alcohol intake frequency: holidays/special occasions only Alcohol type: beer Patient Tobacco Use Status: Current everyday Tobacco user Tobacco use type: Cigarette Cigarettes Per Day: 5 e-Cigarette/Vaping Use: Never Used Second Hand Smoke Exposure: No service: No Current occupational status: unemployed Cognitive needs: No Hearing needs: No Vision needs: No Physical Exam Vital Signs: Last Vital Signs Pulse 87 12/19/24 12:55 BP 110/60 12/19/24 12:55 Pulse Ox 98 12/19/24 12:55 Oxygen Delivery Method Room Air 12/19/24 12:55 BMI result Body Mass Index 23.9 Const Orientation/consciousness: patient oriented x3 Resp Effort & Inspection: normal respiratory effort and able to speak in complete sentences Neuro General: patient oriented x3 Cranial nerves: Yes CN's II-XII intact bilaterally and Yes Nystagmus not present Cognition (Neuro): normal cognition Gait exam (Neuro): Normal gait present Motor exam (neuro): 5/5 motor strength present throughout Pupils: Normal pupillary reactivity/response: bilateral Psych Appearance: grossly normal Mental Status: mental status grossly normal Speech and movement: Normal speech and movement present Affect: normal affect Attitude: cooperative Thought process: Normal thought process present Assessment & Plan Assessment & Plan (1) Chronic migraine without aura: Code(s): G43.709 - Chronic migraine without aura, not intractable, without status migrainosus Category: Medical (2) Cervicalgia: Code(s): M54.2 - Cervicalgia Category: Medical (3) Sleep difficulties: Code(s): G47.9 - Sleep disorder, unspecified Category: Medical (4) Excessive daytime sleepiness: Code(s): G47.19 - Other hypersomnia Category: Medical (5) Snoring: Code(s): R06.83 - Snoring Category: Medical (6) Kidney stones: Code(s): N20.0 - Calculus of kidney Category: Medical (7) Low back pain: Code(s): M54.50 - Low back pain, unspecified Category: Medical Plan Reviewed HST-no evidence for sleep apnea. Pt is again advised to undergo: PT eval & tx for craniosacral tx. Optometry eval and treat For overall headache management: Optimize good self-care, including but not limited to maintaining a healthy diet, adequate fluid intake, adequate sleep, and engaging in regular physical activity. Track headaches, especially after any treatment regimen changes. Migraine [employer] is one of many headache tracking apps. For acute headache treatment: Discussed importance of taking acute medications at the first sign of headache, however stressed importance of avoiding acute medication overuse (especially with combined headache medications). May continue Fioricet prn for now. Advise that tramadol should not be used for migraine treatment, as this can cause medication added dictation headache. Consider trialing Sumatriptan at f/u. Previous acute migraine medication trials: Rizatriptan- palpitations. Acute migraine medication contraindications: None at this time For headache prevention medication: Preventative medications should be taken routinely as prescribed for best effect, it may take several weeks for full effect to take effect. Continue Riboflavin 400mg qam Start Magnesium 400mg qhs Start nortriptyline 25 mg daily at 9pm x1 week, then increase to 50 mg daily at pm- in hopes this will help back pain as well. Potential side effects of nortriptyline include but are not limited to fatigue, cardiac arrhythmias, mood changes. Discontinue Topiramate 25-50mg qhs order- as patient has a history of kidney stones. Previous migraine prevention medication trials: Amitriptyline 25mg qhs- caused excessive sleepiness. Migraine prevention medication contraindications: anti-HTN, including beta-blockers, d/t h/o syncope and low BP. Topiramate due to history of kidney stones. We will call patient in 4 weeks to check on his status. Will follow-up upon review of above and patient to follow-up in clinic in 6 months or sooner prn. Orders: Orders PT Evaluation and Treatment Today G43.709 - Chronic migraine without aura, not intractable, without status migrainosus, M54.2 - Cervicalgia Referrals Optometry Referral G43.709 - Chronic migraine without aura, not intractable, without status migrainosus, H53.8 - Other visual disturbances Medications: New nortriptyline 25mg daily at 9pm x's 1 week, then 50mg daily at 9pm orally bedtime; 30 days 60 caps 6RF Refilled magnesium oxide may hold for loose stools 400 mg PO BEDTIME 30 days 30 tabs 6RF riboflavin (vitamin B2) in am 400 mg (4 x 100 mg) PO DAILY 30 days 120 tabs 6RF Discontinued topiramate Discontinued Reason: Doctor's Order 25 - 50 mg (1 - 2 x 25 mg) PO BEDTIME 30 days 60 tabs 3RF Coding Level of Care Code Est Pt Level 4 (12910) Complex EM visit Add On G2211 Diagnoses Chronic migraine without aura G43.709 Cervicalgia M54.2 Sleep difficulties G47.9 Excessive daytime sleepiness G47.19 Snoring R06.83 Kidney stones N20.0 Low back pain M54.50
--- OUTSIDE RECORDS SUMMARY | 2024-12-19 15:27 | XMS_ITS | Clinical Summary ---
Author Organization [facility] it Address [address] [place] [address] Care Team Providers Care Avian Keeper Name Role Phone Unavailable Primary Care Provider Unavailabl e Social History Tobacco Use Types Packs/Day Years Used Date Smoking Tobacco: Never Assessed Sex and Gender Information Value Date Recorded Sex Assigned at Not on file Legal Sex Male 5:41 PM EST Gender Identity Not on file Sexual Orientation Not on file Plan of Treatment Health Maintenance Due Date Last Done Comments DTaP,Tdap,and Td Vaccines (1 - Tdap) 2005 Hepatitis B Vaccines (1 of 3 - 19+ 3-dose series) 2005 Cholesterol Screening (Lipid Panel) 08/06/2022 HIV Screening 08/06/2022 COVID-19 Vaccine (2023-2 5 season) 2024 Influenza Vaccine (Season Ended) 2025 HIB Vaccines Aged Out No longer eligi ble based on patient's age to complete this topic HPV Vaccines Aged Out No longer eligi ble based on patient's age to complete this topic Hepatitis A Vaccines Aged Out No long er eligible based on patient's age to complete this topic IPV Vaccines Aged Out No longer eligi ble based on patient's age to complete this topic MMR Vaccines Aged Out No longer eligi ble based on patient's age to complete this topic Meningococcal ACWY Vaccine Aged Out N o longer eligible based on patient's age to complete this topic Meningococcal B Vaccine Aged Out No l onger eligible based on patient's age to complete this topic Pneumococcal Vaccine: Pediat rics (0 to 5 Years) and At-Risk Patients (6 to 64 Years) Aged Out No longer eligible b ased on patient's age to complete this topic RSV Immunization Patients Un trever 20 months Aged Out No longer eligible b ased on patient's age to complete this topic Varicella Vaccines Aged Out No longer eligible based on patient's age to complete this topic
== END 2024-12-19 13:50 | disposition home or self-care (01) ==
LOC: HO.HSMS 12:42
PROVIDERS: PCP Internal Medicine; Visit Provider Nurse Practitioner Family
DX: G43.709 Chronic migraine without aura, not intractable, without status migrainosus (principal); M54.2 Cervicalgia; G47.9 Sleep disorder, unspecified; G47.19 Other hypersomnia; R06.83 Snoring; N20.0 Calculus of kidney; M54.50 Low back pain, unspecified
CPT/HCPCS: 99214; G2211

== ENCOUNTER → 2024-12-19 12:41 | Outpatient (BNVA) | payer OTHER, SELFPAY | PROVIDERS: PCP Internal Medicine; Visit Provider Nurse Practitioner Family | DX: G43.709 Chronic migraine without aura, not intractable, without status migrainosus (principal); G47.9 Sleep disorder, unspecified; G47.19 Other hypersomnia; M54.2 Cervicalgia; R06.83 Snoring; N20.0 Calculus of kidney; M54.50 Low back pain, unspecified | CPT/HCPCS: 99212 ==

== ENCOUNTER 2025-06-11 15:18 | Outpatient (AMB) | payer OTHER, SELFPAY ==
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
[2025-06-11 15:27] VITALS: BP 102/60; PULSE 108; O2SAT 98; BMI 22.1
== END 2025-06-11 16:23 | disposition home or self-care (01) ==
LOC: HO.HSMS 15:18
PROVIDERS: PCP Internal Medicine; Visit Provider Nurse Practitioner Family
DX: G43.709 Chronic migraine without aura, not intractable, without status migrainosus (principal); M54.2 Cervicalgia; G47.9 Sleep disorder, unspecified; G47.19 Other hypersomnia; R06.83 Snoring
CPT/HCPCS: 99214

== ENCOUNTER → 2025-06-11 15:18 | Outpatient (BNVA) | payer OTHER, SELFPAY | PROVIDERS: PCP Internal Medicine; Visit Provider Nurse Practitioner Family | DX: G43.709 Chronic migraine without aura, not intractable, without status migrainosus (principal); M54.2 Cervicalgia; G47.9 Sleep disorder, unspecified; G47.19 Other hypersomnia | CPT/HCPCS: 99212 ==